=== PATIENT | female | born 1985 | race Caucasian/White ===

== ENCOUNTER 2019-10-05 02:29 | Emergency (ER) | payer SELFPAY ==
[2019-10-05 02:30] VITALS: BP 139/104; PULSE 113; RESP 18; TEMP 36.7; O2SAT 95; BMI 29.1
--- NOTE | 2019-10-05 02:34 | CT_ITS ---
STUDY: CT BRAIN WITHOUT CONTRAST REASON FOR EXAM: Female, 34 years old. S/P FALL, LAC ON NOSE RADIATION DOSAGE (If Supplied By Facility): CTDIvol = ( 44.99 ) mGy, DLP = ( 745.49 ) mGycm TECHNIQUE: Transaxial CT imaging of the brain was performed without administration of intravenous contrast material. Individualized dose optimization techniques were used for this CT. COMPARISON: No relevant priors. FINDINGS: There is no intracranial or intracerebral hemorrhage. The ventricles are symmetric without dilatation. The brain in white matter tracts are unremarkable. The posterior fossa is unremarkable. There are displaced bilateral nasal bone fractures. There is adjacent soft tissue hematoma and air within the soft tissues. There is a fracture through the anterior bony nasal septum. There is edema within the turbinates. There is mucosal thickening within the paranasal sinuses. CT/Brain/Head without Contrast IMPRESSION: Displaced bilateral nasal bone fractures Paranasal Soft tissue hematoma, air within the soft tissues Fracture through the anterior bony nasal septum Electronically Signed: Jean Carlos Valle, at 3:28 EST Tel , Service support ,
--- NOTE | 2019-10-05 02:34 | CT_ITS ---
STUDY: CT FACIAL BONES WITHOUT CONTRAST REASON FOR EXAM: Female, 34 years old. S/P FALL, LAC ON NOSE RADIATION DOSAGE (If Supplied By Facility): CTDIvol = ( 29.38 ) mGy, DLP = ( 562.15 ) mGycm TECHNIQUE: The patient was scanned in a multi detector CT scanner. Sagittal and coronal images were reconstructed. Individualized dose optimization techniques were used for this CT. COMPARISON: None. FINDINGS: There are displaced bilateral nasal bone fractures. There are paranasal soft tissue hematomas. There is air within the soft tissues. There is nondisplaced fracture through the anterior bony nasal septum. There is a hematoma anterior to the left maxillary sinus. CT/Sinus/Facial Bone IMPRESSION: Displaced bilateral nasal bone fractures Paranasal soft tissue hematomas, air within the soft tissues Nondisplaced fracture through the anterior bony nasal septum Electronically Signed: Jean Carlos Valle, at 3:35 EST Tel , Service support ,
--- NOTE | 2019-10-05 02:39 | ED.DCSUM_ITS ---
- ER Visit Summary Date of Service: 10/05/19 Chief Complaint: Fall History of Present Illness: The patient is a 34 F presenting after fall. Patient states she tripped over her dog and fell. She hit her coffee table. She did not lose consciousness. She states there was no glass that shattered. She has a laceration to the bridge of her nose. Her last tetanus is unknown. She denies other injuries. She is not on anticoagulants. Denies vomiting. Denies other complaints. Physical Examination: Vitals are stable. Patient is afebrile. Alert no acute distress. HEENT exam 1 cm laceration bridge of nose. No septal hematoma. Midface stable. Extraocular muscles intact Neck is nontender Lungs are clear and equal bilaterally. Heart is regular rate and rhythm. Abdomen is soft nontender nondistended. Extremities are unremarkable. Skin is warm and dry. No focal neurologic deficit. Remainder of exam is unremarkable. Emergency Department Course and Treatment: Patient was given tetanus IM. Wound was copiously irrigated. Anesthetized with lidocaine. 2, 5-0 simple sutures were placed. CT brain shows no acute process. CT facial bones shows displaced bilateral nasal bone fractures. Paranasal soft tissue hematoma, air within the soft tissues. Fracture through the anterior bony nasal septum. Patient was given Keflex and a short course of Brule. She is advised to follow-up with Dr. Marinelli. Advised return to ED for worsening complaints. Disposition: Discharge home Impression: Nasal bone fracture, facial laceration, laceration repair This note was generated with [employer] dictation software. It may contain incorrect words, spelling, and punctuation that were not noted in review of the chart prior to signing ED Disposition - Plan for ED Patient: Instructions: FRACTURE, Nose (with X-Ray), LACERATION, All Prescriptions: Cephalexin [Keflex] 500 mg PO Q6 #40 cap Prescription Printed Hydrocodone Bitart/Apap 5-325 [[place] 5MG-325MG] 1 tab PO Q6H PRN PRN 3 Days #6 tab PRN Reason: Pain Prescription Printed Referrals: Roshan Marinelli MD [STAFF PHYSICIAN] -
[2019-10-05] MEDS: HYDROcodone Bitartrate/Apap 5/325 Tablet PO (02:49)
[2019-10-05] MEDS: Diphth,Pertuss(Acell),Tet Vac 0.5 ML Vial IM (02:51)
[2019-10-05] MEDS: Lidocaine/Epi/Tetracaine 50 ML 1 APPLIC TOPICAL (02:53)
--- NOTE | 2019-10-05 04:01 | DCINST.ED_ITS ---
ED Disposition - Plan for ED Patient: Instructions: FRACTURE, Nose (with X-Ray), LACERATION, All Prescriptions: Cephalexin [Keflex] 500 mg PO Q6 #40 capsule Hydrocodone Bitart/Apap 5-325 [[place] 5MG-325MG] 1 tablet PO Q6H PRN PRN 3 Days #6 tablet PRN Reason: Pain Referrals: Roshan Marinelli MD [STAFF PHYSICIAN] -
[2019-10-05] MEDS: Cephalexin 250 MG Capsule 500 MG PO (04:19)
[2019-10-05 04:26] VITALS: BP 130/60; PULSE 98; RESP 18; O2SAT 97
== END 2019-10-05 04:27 | disposition home or self-care (01) ==
PROVIDERS: Emergency Provider Emergency Medicine
DX: S02.2XXA Fracture of nasal bones, initial encounter for closed fracture (principal); S01.21XA Laceration without foreign body of nose, initial encounter; W01.0XXA Fall on same level from slipping, tripping and stumbling without subsequent striking against object, initial encounter; Y93.9 Activity, unspecified; Y92.9 Unspecified place or not applicable
CPT/HCPCS: 12011; 70450; 70486; 90471; 90715; 99285

== ENCOUNTER 2020-05-18 06:45 | Emergency (ER) | payer MEDICAID, SELFPAY ==
[2020-05-18 06:46] VITALS: BP 147/100; PULSE 88; RESP 18; TEMP 36.5; O2SAT 97; BMI 30.7
--- NOTE | 2020-05-18 06:58 | ED.VIS.GEN ---
History of Present Illness Chief Complaint: General Illness Informant: Patient Narrative: 34-year-old female presenting with concern for COVID?19. She states she has had intermittent headaches, a mild cough, and generally feeling unwell. She does state that she is able to continue smoking without difficulty. She does states that she feels like she might have mild shortness of breath at times. She states that she has not taken anything for a headache. She denies fever. She denies body aches. She has not lost her sense of taste or smell. She does complain of some mild nasal congestion. His chest pain or abdominal pain. She denies urinary symptoms or bowel symptoms. Past Medical History - Allergies and Home Meds Allergies/Adverse Reactions: Allergies No Known Allergies Allergy (Verified 05/18/20 06:51) Primary Care Physician: Care Physician,No Primary [Primary Care Provider] - Prior records reviewed: Yes Lives: Alone Smoking Status: Current every day smoker Alcohol: None Drugs: None Review of Systems General: Reports: Malaise. Denies: Chills, Fever Eyes: Denies: Visual changes - bilaterally, Diplopia ENT: Reports: - - Nasal congestion. Denies: Rhinorrhea, Sore throat Cardiovascular: Denies: Chest pain, Palpitations Respiratory: Reports: Dyspnea, Cough Gastrointestinal: Denies: Abdominal pain, Nausea, Vomiting Genitourinary: Denies: Dysuria, Hematuria Musculoskeletal: Denies: Myalgias Skin: Denies: Rash Neurological: Reports: Headache. Denies: Weakness Psych: Denies: Depression, Anxiety Physical Exam Vital Signs/Narrative: Vital Signs Temp Pulse Resp BP Pulse Ox 05/18/20 06:46 97.7 F L 88 18 147/100 H 97 General: Well nourished, No Acute Distress Head: Normocephalic, Atraumatic Eyes: Perrl, EOMI ENT: Nasal congestion Cardiovascular: Regular rate, Regular rhythm, No murmurs Respiratory: No distress, CTA bilaterally. Negative for: Wheezing, Diminished Extremities: No edema Skin: Negative for: Normal color, No rash, Cyanosis Neurological: Alert, Oriented x3 Psychological: Normal affect Diagnostic/Tx/Re-eval - Medical Decision Making Patient presents for COVID testing. She states that she has had headache, generalized malaise, slight cough and shortness of breath. She does attribute some of this to her smoking. She has been able to work for the last 5 days. She has not taken anything for any of her symptoms. In this I believe that her symptoms are mild. I do not believe she needs blood work or imaging. Her physical exam is normal. Her vital signs are stable and she is afebrile. She will be tested for COVID?19 given quarantine precautions. ED Disposition - Plan for ED Patient: Disposition: Home or Assisted Living Instructions: Self-Care for Headaches, Preventing Common Respiratory Infections Prescriptions: Ibuprofen 600 mg PO Q8 #30 tab Transmission Status: Pending to [facility] [address] Acetaminophen [Tylenol 8 Hour] 650 mg PO Q8H PRN PRN #30 tablet.er PRN Reason: Pain Or Fever Transmission Status: Pending to [facility] [address] Ondansetron [Zofran Odt] 4 mg PO Q8H PRN PRN #20 tab PRN Reason: Nausea Transmission Status: Pending to [facility] [address] Referrals: Care Physician,No Primary [Primary Care Provider] -
== END 2020-05-18 07:32 | disposition home or self-care (01) ==
LOC: ED 07:31
PROVIDERS: Emergency Provider Student in an Organized Health Care Education/Training Program
DX: B34.9 Viral infection, unspecified (principal); R51 Headache; F17.200 Nicotine dependence, unspecified, uncomplicated
CPT/HCPCS: 87635; 94799; 99282; U0003

== ENCOUNTER 2020-05-22 11:44 | Emergency (ER) | payer MEDICAID, SELFPAY ==
[2020-05-22 11:45] VITALS: BP 122/77; PULSE 112; RESP 16; TEMP 36.7; O2SAT 98; BMI 29.1
[2020-05-22 11:49] VITALS: BP 115/76; PULSE 109; RESP 16; TEMP 36.7; O2SAT 97
--- NOTE | 2020-05-22 12:21 | ED.RN ---
DR WOOD WENT IN AND EVALUATED PT. URINE SAMPLE WAS OBTAINED. PT MADE A PHONE CALL. PT WAS THEN SEEN AMBULATING FROM ED WITH STEADY GAIT. UNSURE OF REASON PT LEFT.
--- NOTE | 2020-05-22 12:25 | ED.RN ---
Pt left department.
--- NOTE | 2020-05-22 12:26 | ED.DCSUM_ITS ---
- ER Visit Summary Date of Service: 05/22/20 Chief Complaint: Headache, lightheaded, nausea vomiting History of Present Illness: The patient is a 34 F who is had the above symptoms for the past week. She states that she has had a diffuse headache. Light makes it worse. She has had nausea vomiting as well as diarrhea. She has been eating and drinking okay. She was given Motrin and Zofran last week and she states that these are helping. She complains of shortness of breath as well as a cough. She was seen here last week and had a negative coronavirus test. She states her symptoms are still persisting. Physical Examination: Vital signs reviewed. HEENT exam unremarkable. Heart is tachycardic and regular rhythm without murmurs. Lungs are clear to auscultation. Abdomen is soft and nontender. Extremities reveal no edema. Skin exam normal. Neurologic exam normal. Test Results: None were performed as patient eloped Emergency Department Course and Treatment: While I was interviewing the patient she states that nobody has listened to her about her symptoms. I told her that I was here to listen and this is the first time I have met her and listen about her symptoms. I informed her that we were going to do laboratory studies, IV fluids and urine studies. After I exited the room and started to put orders in, the nurse notified me that the patient just walked out of the emergency department without telling anybody. Treatment Plan: [] Disposition: Elopement without telling any staff Impression: Headache, lightheaded, elopement This note was generated with [employer] dictation software. It may contain incorrect words, spelling, and punctuation that were not noted in review of the chart prior to signing ED Disposition - Plan for ED Patient: Disposition: Home or Assisted Living Referrals: Care Physician,No Primary [Primary Care Provider] -
[2020-05-22 12:27] LABS: Mucous, Urine 0 SEEN /hpf (<or=2+); Red Blood Cells-Urine 0 SEEN /hpf (0-5); White Blood Cells 0 SEEN /hpf (0-5)
[2020-05-22 12:28] LABS: Color, Urine Straw (Yellow); Glucose, Dipstick Normal (Normal); Ketone-Dipstick Negative (Negative); Leukocyte Esterase-Dipstick Negative /ul (Negative); Nitrite-Dipstick Negative (Negative); Occult Blood-Urine Negative /ul (Negative); Protein-Dipstick Negative (Negative); Specific Gravity, Urine 1.005 (1.002-1.030); Urine Bilirubin Dipstick Negative (Negative); Urine Clarity Sl. Cloudy (Clear); Urine Urobilinogen Normal (Normal); Urine pH 6.5 (5.0 - 8.0)
[2020-05-22 12:30] LABS: Internal QC Validated? YES +Cl - CLEAR BKGD; Pregnancy, Urine Negative Negative
[2020-05-22 12:37] LABS: Bacteria 1+ /hpf (None Seen); Squamous Epithelial Cells - UA 0-5 SEEN /hpf (5-10)
== END 2020-05-22 12:24 | disposition home or self-care (01) ==
LOC: ED 12:23
PROVIDERS: Emergency Provider Emergency Medicine
DX: R42 Dizziness and giddiness (principal); R51 Headache; Z72.0 Tobacco use
CPT/HCPCS: 81001; 81025; 99283

== ENCOUNTER → 2024-05-23 | Outpatient (CLI) | payer OTHER, SELFPAY ==
[2024-05-23 12:33] LABS: Absolute Lymphocyte Count 1.43 X10^3/uL (0.83-4.51); Basophil# 0.05 X10^3/uL; Basophil% 0.8 % (0-1); Eosinophil# 0.14 X10^3/uL; Eosinophils% 2.3 % (0-5); Hematocrit 36.9 % (37-47); Hemoglobin 11.8 g/dL (12.0-15.0); Lymphocyte # 1.43 X10^3/ul (0.83-4.51); Mean Corpuscular Hgb 29.6 pg (27.0-32.0); Mean Corpuscular Volume 92.7 fL (81-99); Mean Platelet Vol. 11.6 fl (6.2-12.0); Monocyte# 0.37 X10^3/uL; Monocyte% 6.2 % (0-10); NRBC Flagged by Analyzer 0 % (0-5); Neutrophil # 3.97 X10^3/uL (2.7-7.7); Neutrophil % 66.5 % (47-70); Platelet Count 330 K/mm3 (150-450); RBC Distribution Width SD 44.4 fl (35.1-43.9); Red Blood Count 3.98 M/mm3 (4.2-5.4)
[2024-05-23 12:52] LABS: ALB/GLOB Ratio 0.9 RATIO (0.9-2.4); AST(SGOT) 19 U/L (15-37); Alanine Aminotransfer ALT/SGPT 28 U/L (13-56); Albumin, Serum 3.7 g/dL (3.2-5.0); Alkaline Phosphatase 51 U/L (45-117); Anion Gap 2 (5-15); BUN 13 mg/dL (7-18); Calcium,Total 9.1 mg/dL (8.5-10.1); Chloride 110 mmol/L (98-107); Cholesterol 141 mg/dL (200); Creatinine, Serum 0.86 mg/dL (0.55-1.02); EST Glomerular Filtration Rate 77 mL/min (>60); Est Glom Filt Rate - Afr Amer 93 mL/min (>60); Globulin 3.9 g/dL (2.2-4.2); Glucose 99 mg/dL (74-106); High Density Lipoprotein 48 mg/dL; Potassium 4.4 mmol/L (3.5-5.1); Protein, Total 7.6 g/dL (6.4-8.2); Sodium Level 141 mmol/L (136-145); Thyroid Stim Hormone (TSH) 0.534 uIU/mL (0.358-3.740); Triglycerides 59 mg/dL; Very Low Density Lipoprotein 12 mg/dL (5-40)
[2024-05-23 12:53] LABS: Vitamin D,25 Hydroxy 63.6 ng/mL
[2024-05-23 14:58] LABS: Hemoglobin A1c 5.3 % (3.8-5.6)
[2024-05-24 17:37] LABS: Iron 88 ug/dL (50-170); Iron Binding Capacity,Total 290 ug/dL (250-450); PERCENT IRON SATURATION 30.3 % (15.0-55.0)
[2024-05-26 12:10] LABS: Vitamin D 1,25-Dihydroxy 40.8 pg/mL (24.8-81.5)
== END | disposition home or self-care (01) ==
LOC: BIMLAB 10:59
PROVIDERS: Nurse Practitioner Family; PCP Internal Medicine; Referring Provider Internal Medicine; Visit Provider Internal Medicine
DX: Z00.00 Encounter for general adult medical examination without abnormal findings (principal); E55.9 Vitamin D deficiency, unspecified; D64.9 Anemia, unspecified
CPT/HCPCS: 36415; 80053; 80061; 82306; 82652; 83036; 83540; 83550; 84443; 85025

== ENCOUNTER → 2024-09-29 | Outpatient (CLI) | payer BC, SELFPAY ==
--- NOTE | 2024-09-29 16:07 | BI_ITS ---
MAMMOGRAPHY - BILATERAL SCREENING 3-D TOMOSYNTHESIS REASON FOR EXAM: Female, 39 years old. SCREENING PERTINENT HISTORY: No significant family history. TECHNIQUE: 2-D mammograms and 3-D Tomosynthesis of the breast (s) were performed. CAD was performed. COMPARISON: None. FINDINGS: The breast composition is heterogeneously dense that can obscure small breast masses. Scattered benign calcifications are seen. No dense spiculated masses or suspicious microcalcifications are identified. No architectural distortion is identified. There is no skin thickening or retraction. There has been no significant change since the prior study. BI/SCRN MAMM (CAD)W/CHRISTIANO BILAT IMPRESSION: No mammographic signs of malignancy. Routine yearly mammograms recommended. ASSESSMENT CATEGORY: BIRADS Category 1: Negative. A letter regarding these results will be sent to the patient by the facility within 30 days. FOLLOW UP RECOMMENDATION: Yearly follow up mammogram recommended. (A) Approximately 10% of breast cancers are not detected by mammography. A normal mammogram should not delay biopsy of a clinically suspicious abnormality. Electronically Signed: Vijay York MD at 19:34 EST ,
== END | disposition home or self-care (01) ==
LOC: OPBI 16:06
PROVIDERS: PCP Nurse Practitioner Family; Referring Provider Nurse Practitioner Family; Visit Provider Nurse Practitioner Family
DX: Z12.31 Encounter for screening mammogram for malignant neoplasm of breast (principal)
CPT/HCPCS: 77063; 77067

== ENCOUNTER → 2025-05-24 | Outpatient (CLI) | payer BC, SELFPAY ==
[2025-05-24 14:54] LABS: Hematocrit 36.2 % (37-47); Hemoglobin 12.0 g/dL (12.0-15.0); Immature Granulocytes Count 0.030 X10^3/uL (0.0-0.0); Mean Corp Hgb Conc 33.1 g/dL (32-36); Mean Corpuscular Volume 93.1 fL (81-99); Mean Platelet Vol. 10.8 fl (6.2-12.0); NRBC Flagged by Analyzer 0 % (0-5); Platelet Count 321 K/mm3 (150-450); RBC Distribution Width CV 12.9 % (11.6-14.6); RBC Distribution Width SD 43.8 fl (35.1-43.9); Red Blood Count 3.89 M/mm3 (4.2-5.4); White Blood Count 9.6 K/mm3 (4.4-11.0)
[2025-05-24 15:56] LABS: AST(SGOT) 31 U/L (<=31); Alanine Aminotransfer ALT/SGPT 21 U/L (<=34); Albumin, Serum 4.5 g/dL (3.5-5.0); Alkaline Phosphatase 50 U/L (35-104); Anion Gap 11 (5-15); BUN 16 mg/dL (4-19); BUN/Creat Ratio 19.8 RATIO (10-20); Calcium,Total 9.7 mg/dL (7.6-11.0); Carbon Dioxide 24.8 mmol/L (21.0-32.0); Chloride 104 mmol/L (98-108); Cholesterol 170 mg/dL (<=200); Globulin 3.2 g/dL (2.2-4.2); Glucose 84 mg/dL (70-99); Low Density Lipoprotein Calc. 98 mg/dL; Potassium 4.3 mmol/L (3.3-5.1); Triglycerides 62 mg/dL; Very Low Density Lipoprotein 12 mg/dL (5-40); cholesterol:hdl ratio screen 2.87
== END | disposition home or self-care (01) ==
PROVIDERS: PCP Internal Medicine; Referring Provider Internal Medicine; Visit Provider Internal Medicine
DX: Z00.00 Encounter for general adult medical examination without abnormal findings (principal)
CPT/HCPCS: 36415; 80053; 80061; 85025